=== PATIENT | male | born 1995 | race Caucasian/White ===

== ENCOUNTER 2019-11-20 10:09 | Emergency (ER) | payer SELFPAY ==
[2019-11-20 10:21] VITALS: BP 131/72; PULSE 75
--- NOTE | 2019-11-20 10:26 | EDM.PDOC ---
<Artemio Mary - Last Filed: 11/20/19 13:51> ED HPI GENERAL MEDICAL PROBLEM - General Chief Complaint: Lower Extremity Injury/Pain Stated Complaint: LEFT FOOT/ANKLE INJURY Time Seen by Provider: 11/20/19 10:26 Right Foot Pain Score (Numeric/FACES): 8 - Related Data Allergies Allergy/AdvReac Type Severity Reaction Status Date / Time No Known Allergies Allergy Verified 11/20/19 10:22 Home Meds: Home Meds . [No Known Home Meds] 07/16/15 [History] Past Medical History - Past Health History Medical/Surgical History: Denies Medical/Surgical History HEENT History: Reports: Impaired Vision Other HEENT History: wears eyeglasses Musculoskeletal History: Reports: Fracture Neurological History: Reports: Head Trauma Psychiatric History: Reports: Anxiety - Infectious Disease History Infectious Disease History: Reports: Chicken Pox Social & Family History - Tobacco Use Smoking Status *Q: Never Smoker - Caffeine Use Caffeine Use: Reports: Coffee, Soda - Recreational Drug Use Recreational Drug Use: No - Living Situation & Occupation Living situation: Reports: Single Occupation: Employed Course - Re-Assessments/Exams Free Text/Narrative Re-Assessment/Exam: 11/20/19 13:51 I did evaluate the patient and worked closely with Baldo Gotti nurse practitioner student with the initial evaluation work-up assessment disposition of this patient. Departure - Departure Disposition: Home, Self-Care 01 Clinical Impression: Injury of right ankle and foot - Discharge Information Instructions: Foot Sprain Referrals: PCP,None [Primary Care Provider] - Forms: ED Department Discharge Additional Instructions: Return to Emergency Department for any questions, concerns, or worsening symptoms. Wear walking boot at all times until reassessment of foot by Dr Calvert. Follow up with Dr Calvert in 1-2 week for reassessment of foot. Naproxen 220mg take 2 tablets twice daily with morning and evening meals for discomfort and swelling. Sepsis Event Note (ED) - Evaluation Sepsis Screening Result: No Definite Risk <Andres Gotti - Last Filed: 11/20/19 14:01> ED HPI GENERAL MEDICAL PROBLEM - History of Present Illness INITIAL COMMENTS - FREE TEXT/NARRATIVE: 24 year-old male come to the emergency room for complaints of right foot pain. Patient states that last week Saturday he was at the [employer] [place] [employer] park doing jumps and tricks on his BMX bike when he had a fall while performing a jump falling about 3 feet landing on his right inner foot and left hand on cement. Pt stated that he felt immediate sharp pain to his right inner foot and left hand. There was bruising and swelling to his foot and hand. Immediately post injury patient iced and elevated his foot. He wrapped his foot with a stretching compression wrap for 2 days after the injury. Swelling and bruising has improved but the pain has persisted. Patient has returned to work this past week but the pain in his foot while walking has prevented him from doing is work effectively. Patient states that he has to walk on the lateral part of his foot because it is too painful to walk normally. Assessment shows full ROM to foot and ankle. There is no pain on palpation to the dorsal aspect, lateral aspect, or to the heel. Pain is located medial inferior subtalar area that he rates as a dull 2-3/10 at rest and sharp 8/10 with palpation over area. Onset Date: 11/13/19 Review of Systems - Review of Systems Review Of Systems: See Below Constitutional: Reports: No Symptoms Respiratory: Reports: No Symptoms Cardiovascular: Reports: No Symptoms GI/Abdominal: Reports: No Symptoms Musculoskeletal: Reports: Foot Pain (Right inner foot in proximal arch inferior ankle) ED EXAM, GENERAL - Physical Exam Exam: See Below Exam Limited By: No Limitations General Appearance: Alert, WD/WN, No Apparent Distress Respiratory/Chest: No Respiratory Distress Cardiovascular: Normal Peripheral Pulses Peripheral Pulses: 2+: Posterior Tibial (R), Dorsalis Pedis (R) Extremities: Other (Bruising and swelling to inner arch of right foot. X-ray showed irregularity on 2nd cuneiform. Patient does not complain of any pain over area. Area of tenderness on assessment was localized over the medial posterior calcaneal articulation. Discussed with radiology.) Course - Vital Signs Last Recorded V/S: Last Vital Signs Temp 98.6 F 11/20/19 10:19 Pulse 75 11/20/19 10:19 Resp 16 11/20/19 10:19 BP 131/72 11/20/19 10:19 Pulse Ox 100 11/20/19 10:19 - Orders/Labs/Meds Orders: Active Orders 24 hr Category Date Time Status Durable Medical Equipment for Discharge [DME for Oth 11/20/19 11:49 Ordered Discharge] [COMM] Stat - Radiology Interpretation Free Text/Narrative:: X-rays reviewed with radiologist and no acute fractures or dislocations. Discussed with patient the possibility of occult fracture and option for CT scan to verify. Patient declined this option. Suggested to place foot in a walking boot and to follow up with his PCP in one week. Patient agreed to this and will wear boot at all times while up and ambulating until he follows up with his PCP. Departure - Departure Time of Disposition: 11:54 Condition: Good - Discharge Information *PRESCRIPTION DRUG MONITORING PROGRAM REVIEWED*: No *COPY OF PRESCRIPTION DRUG MONITORING REPORT IN PATIENT DAHIANA: No Sepsis Event Note (ED) - Focused Exam Vital Signs: Vital Signs Temp Pulse Resp BP Pulse Ox 11/20/19 10:19 98.6 F 75 16 131/72 100
--- NOTE | 2019-11-20 11:35 | CR ---
Addendum: In discussion with Dr. Mary right foot exam was reviewed. There is a lucent line on one view within the 2nd cuneiform bone. Overlapping bone makes is difficult to confirm as a fracture. Minimal lucent line is noted within the distal calcaneus possibly due to overlapping fat plane. No definite fracture is seen. If patient remains symptomatic, recommend repeat study in 10-[address] could be performed earlier if patient symptoms are significant enough. --- Addendum1 above dictated on [11/20/2019 11:54] by [Leisa Swartz, Frankie Jimenez] --- --- Addendum1 above signed on [11/20/2019 11:55] by [Leisa Swartz, Frankie Jimenez] --- --- Original report below dictated on [11/20/2019 11:32] by [Leisa Swartz, Frankie Jimenez] --- --- Original report below signed on [11/20/2019 11:32] by [Leisa Swartz, Frankie Jimenez] --- Right foot: 4 views of the right foot were obtained. Comparison: No prior foot exam is available. Joint spaces are preserved. No fracture, dislocation or other bony abnormality is appreciated. Impression: 1. No abnormality is identified on right foot exam. Diagnostic code #1 This report was dictated in MDT --- Addendum1 signed ---
--- NOTE | 2019-11-20 11:35 | CR ---
Right ankle: 4 views of the right ankle were obtained. Comparison: No previous ankle study. Joint space is maintained within the tibiotalar joint. No fracture, dislocation or other bony abnormality is appreciated. Impression: 1. Nothing acute is appreciated on right ankle exam. Diagnostic code #1 This report was dictated in MDT
== END 2019-11-20 12:30 | disposition home or self-care (01) ==
LOC: JD.ED 10:09
DX: S90.31XA Contusion of right foot, initial encounter (principal); S60.222A Contusion of left hand, initial encounter; W17.89XA Other fall from one level to another, initial encounter
CPT/HCPCS: 73610-26-RT; 73610-RT; 73630-26-RT; 73630-RT; 99283; 99283-25